=== PATIENT | male | born 1960 | race Caucasian/White ===

== ENCOUNTER → 2017-08-18 | Outpatient (CLI) | payer OTHER | END | disposition home or self-care (01) | LOC: KCIC CT 08:26 | PROVIDERS: ATTEND Family Medicine ==

== ENCOUNTER → 2017-08-20 | Outpatient (CLI) | payer OTHER ==
[~2017-08-20] MED LIST: BARIUM SULFATE 2.1% 450 ML SUSP PO ONE
--- NOTE | 2017-08-20 11:29 | KCIC ---
Examination: CT of the abdomen pelvis with oral contrast HISTORY: History of left lower quadrant abdominal pain. COMPARISON: None available TECHNIQUE: Axial CT images of the abdomen were performed with oral contrast. Coronal and sagittal reformats are performed Exposure: One or more of the following individualized dose reduction techniques were utilized for this examination: 1. Automated exposure control 2. Adjustment of the mA and/or kV according to patient size 3. Use of iterative reconstruction technique FINDINGS: The visualized bibasilar lungs grossly appears unremarkable. No evidence of free air identified in the abdomen. The evaluation of the solid organs is limited lack of IV contrast. The visualized liver demonstrates small 9 mm hypodensity probably a cyst or cystic lesion. The visualized spleen, adrenals grossly appears unremarkable. The stomach is mildly distended. The visualized pancreas grossly appears unremarkable. The small bowel is nondilated. Feces and gas noted throughout the colon. The appendix is not clearly identified. No evidence of inflammatory fat stranding identified in the left lower quadrant of the abdomen. Multiple sigmoid colon diverticulosis. Urinary bladder is mildly distended. No evidence of intrarenal collecting system calculi or hydronephrosis. No evidence of lytic bony destructive lesion. Mild degenerative changes lumbar spine. Mild enlarged prostate gland. IMPRESSION: 1. No acute intra-abdominal findings. Multiple sigmoid colon diverticulosis. 2. 9 mm hypodensity right lobe of the liver could be a cyst or cystic lesion. Electronically signed by: Yovani Dumont MD (08/20/2017 11:26 AM) [id number]
== END | disposition home or self-care (01) ==
LOC: KCIC CT 09:27
PROVIDERS: ATTEND Family Medicine
DX: K57.30 Diverticulosis of large intestine without perforation or abscess without bleeding (principal); N40.0 Benign prostatic hyperplasia without lower urinary tract symptoms; K31.89 Other diseases of stomach and duodenum
CPT/HCPCS: 74176